=== PATIENT | male | born 1960 | race Caucasian/White ===

== ENCOUNTER → 2023-03-01 | Outpatient (CLI) | payer SELFPAY ==
--- NOTE | 2023-03-01 | HIP_PTH ---
PATIENT: SANTOS GARDINER LOC: [facility] U#:[id number] AGE/SX: 62/M ROOM: RE03/01/[address]: Dr. Esteban Carrillo MD : 1960 BED: DIS: 03/01/2023 SPEC #: [id number] RECD: 03/01/23 15:21 STATUS: ARIELLA REQ #: [id number] THIAGO: 03/01/23 00:[address]: Esteban Carrillo DEPT: SURGICAL PATHOLOGY RECD BY: Shruthi Sanders ENTERED: 03/04/23 07:53 SP TYPE: TOTAL HIP OTHR DR: PAULINA Tissues: Hip, NOS Procedures: Decalcification bone/plaque Surgery Specimen Level IV HEADER OPERATION: Right total hip arthroplasty PRE-OP DIAGNOSIS: Grade IV osteoarthritis right hip TISSUE SUBMITTED: Femur head, right hip MICROSCOPIC DIAGNOSIS Bone and tissue of right hip, total hip resection: Severe degenerative joint disease. AM:ranjith 03/07/2023 MICROSCOPIC DESCRIPTION Slides are reviewed. GROSS DESCRIPTION Received is one container labeled with the patient's name and designated bone and tissue right hip. The specimen consists of a hull femoral head that measures 6.0 x 5.0 x 5.0 cm. The articular surface displays prominent osteophyte formation, eburnation and bone erosion. Also present in the specimen container are multiple irregular fragments of bone reamings and pink-yellow soft tissue measuring in aggregate 8.5 x 8.0 x 1.0 cm. [employer] sections are submitted in two cassettes as follows: 1 - soft tissue and bone reamings, 2 - bone after decalcification. / AM:ranjith 03/04/2023 TC:5 [facility]: [id number]
== END | disposition home or self-care (01) ==
PROVIDERS: Visit Provider Orthopaedic Surgery
DX: M16.11 Unilateral primary osteoarthritis, right hip (principal)
CPT/HCPCS: 88305; 88311

== ENCOUNTER 2023-03-16 19:20 | Inpatient (IN) | payer SELFPAY, OTHER ==
[2023-03-16 18:45] VITALS: BMI 31.6
[2023-03-16 19:07] VITALS: BP 158/99; PULSE 66; RESP 16; TEMP 36.6; O2SAT 100
--- NOTE | 2023-03-16 19:24 | HP.PCM.HOS_ITS ---
HPI - General General Date of Admission: 03/16/23 Date of Service: 03/16/23 Chief Complaint: right hip dislocation HPI Narrative SANTOS GARDINER, is a 62 M who presents with a recurrent right hip dislocation. Patient had a right hip replacement on 01 March. As outpatient procedure and patient went home. That night, patient will had his foot on an ottoman and dislocated his hip. Was able to reduce it on his own. That has been recurrent numerous times since then. Today, patient had a very severe dislocation and went to an outside emergency room and had conscious sedation and had 2 other dislocations after it was initially reduced. Orthopedics was contacted. Dr. Carrillo did the procedure and they spoke with Dr. David Martin. Given the recurrent nature and the fact the patient is unable to go home with the easy dislocation patient brought into the hospital. The plan is for Dr. Dowling to do a revision on the right hip on the . Patient denies any traumatic incidents that led to any of these dislocations. [facility] Medical History Atrial fibrillation Hypertension Home Medications aspirin 81 mg tablet 81 mg PO BID 03/16/23 [History Last Taken 03/15/23] escitalopram oxalate 10 mg tablet 10 mg PO DAILY 03/16/23 [History Last Taken 03/15/23] losartan 100 mg-hydrochlorothiazide 12.5 mg tablet 1 tab PO DAILY 03/16/23 [History Last Taken 03/15/23] Allergy/AdvReac Type Severity Reaction Status Date / Time ketamine AdvReac Other Verified 03/16/23 18:47 Family History (Updated 03/16/23 @ 19:[address] Kalpesh Olea DO) Father Heart disease Surgical History History of appendectomy Social History (Updated 03/16/23 @ 19:[address] Kalpesh Olea DO) Smoking Status: Former smoker alcohol intake: former ROS ROS Narrative All review of systems were negative except as mentioned above in the history of present illness and the other review of systems. Vital Signs Vital Signs Vital Signs: 03/16/23 19:03 03/16/23 19:07 Temperature 36.6 C Temperature Source Oral Pulse Rate 66 Respiratory Rate 16 Respiratory Effort Normal Respiratory Depth Normal Respiratory Pattern Normal Blood Pressure 158/99 H Blood Pressure Mean 118 Blood Pressure Source Monitor Blood Pressure Position Semi-Fowlers Blood Pressure Location Right Arm Pulse Ox 100 Oxygen Delivery Method Room Air Room Air Weight Weight: 108.862 kg Body Mass Index (BMI) 31.6 Physical Exam Narrative - Physical Exam General: Alert, Oriented x3, Cooperative HEENT: Atraumatic, PERRLA, EOMI, Normocephalic Oral: Moist Mucosa, No Gingival or Mucosal Lesions/ Ulcerations Neck: Supple, No JVD, Negative Carotid Bruits Lungs: Clear to auscultation, Normal air movement Cardiovascular: Regular rate, Normal S1, Normal S2, No murmurs Abdomen: Bowel Sounds Present, Soft, Non Tender, Non-Distended, No Hepato- splenomegaly Extremities: No clubbing, No cyanosis, No edema, Capillary Refill Less than 3 Seconds Skin: No rashes, No breakdown right hip incision is clean intact with no evidence of any dehiscence. Musculoskeletal: No Tenderness to Palpation of Joints or Extremities Neurological: Neuro grossly intact Psych/Mental Status: Normal Affect, Appropriate Results Lab / Micro Data Attestation: I reviewed the patient's lab results. Lab results narrative: Outside labs: BMP sodium 137, potassium 4.1, creatinine 0.86, glucose 121, calcium 8.7, CBC: White count 8.2, hemoglobin 11.2, platelets 360 Right hip x-ray showed arthroplasty in place. Unclear if this was done before after reduction assuming after. Assessment & Plan Assessment/Plan (1) Hip dislocation, right: PLAN: Status post right hip replacement. Patient did not have this issue until he had his hip replaced on March 01. It is happened numerous times including 3 times today. Little movements can cause it to dislocate. I discussed the case with Dr. David Martin, who advised bedrest but with bathroom privileges. Patient will need assistance going to the bathroom. Plan is for her to have a revision on the . Patient remain in the hospital until then. Will consult orthopedics Pain control as needed. PLAN: Plan Chronic conditions * Hypertension: Continue with losartan/HCTZ. * A-fib: Takes aspirin. Will hold aspirin for now in light of the upcoming surgery. VTE prophylaxis with low molecular weight heparin. Given lack of any acuity and any active medical issues, patient be made observation status at this time. Charges/Coding Visit Charges Inpatient E&M: 10901 Init Hosp L2
[2023-03-16] MEDS: Acetaminophen 325 MG Tablet 650 MG PO (22:26)
[2023-03-16 22:35] VITALS: BP 139/88; PULSE 87; RESP 16; TEMP 37; O2SAT 97
[2023-03-17 02:15] VITALS: BP 125/62; PULSE 75; RESP 16; TEMP 36.6; O2SAT 97
--- NOTE | 2023-03-17 06:00 | EKG12_ITS ---
Test Reason : AM EKG Blood Pressure : / mmHG Vent. Rate : 072 BPM Atrial Rate : 072 BPM P-R Int : 160 ms QRS Dur : 112 ms QT Int : 414 ms P-R-T Axes : 040 -31 005 degrees QTc Int : 453 ms Normal sinus rhythm Left axis deviation Abnormal ECG No previous ECGs available Confirmed by RAFI GONZALEZ, ANNEL ([id number]), photographic editor CHERELLE RAE ([id number]) on 03/19/2023 1:29:07 PM Referred By: DAJA Confirmed By:RUEL MCKEE MD
--- NOTE | 2023-03-17 07:04 | PCM.PN.HOSP ---
Reason for Visit Reason for Visit: Diagnoses Unspecified dislocation of right hip, initial encounter (03/16/23) Objective Data Objective Data Vital Signs: Vital Signs Temp Pulse Resp BP Pulse Ox O2 Del Method 97.8 F 75 16 125/62 H 97 Room Air 03/17/23 02:15 03/17/23 02:15 03/17/23 02:15 03/17/23 02:15 03/17/23 02:15 03/17/23 02:15 Oxygen Delivery Method Room Air Weight: 240 lb Body Mass Index (BMI) 31.6 Lab / Micro Data Result Diagrams: 03/17/23 05:55 03/17/23 05:55 Physical Exam Narrative Seen and examined. Patient admitted from [place] ED for recurrent dislocation of right hip. Plan for elective revision of right total hip replacement. Patient does not have chest pain or shortness of breath. Denies any chronic cardiac disease or pulmonary disease.Patient is ex-smoker quit long time ago. Physical exam General: Alert, Oriented x3, Cooperative HEENT: Atraumatic, PERRLA, EOMI, Normocephalic Oral: Oral mucosa moist. No Gingival or Mucosal Lesions/ Ulcerations Neck: Supple, No JVD, Negative Carotid Bruits Lungs: Air entry diminished in bilateral lung bases. No crepitation/rhonchi Cardiovascular: Regular rate, Regular Rhythm, Normal S1, Normal S2, No murmurs Abdomen: Bowel Sounds Present, Soft, Non Tender, Non-Distended : No renal angle tenderness. No suprapubic tenderness. Extremities: No edema, Capillary Refill Less than 3 Seconds Skin: Right hip surgical dressing is healed except 1 or 2 stitches were open. As per patient it was not purulent but mild bleeding. Currently it is dry, no redness cellulitis, tenderness or drainage. Musculoskeletal: No Tenderness to Palpation of Joints or Extremities. Recurrent dislocation of right hip prosthetic ball. Right hip ROM not attempted because of recurrent dislocation. Neurological: Cranial nerves II-XII grossly intact, DTR 2+/4 and Symmetrical, Neuro grossly intact Psych/Mental Status: Normal Affect, Appropriate. Assessment & Plan Assessment/Plan (1) Hip dislocation, right: PLAN: 62-year-old gentleman admitted for recurrent 3 times hip dislocation after right hip replacement on March 01, 2023 as an outpatient procedure. Patient had very severe dislocation and went to [facility] and was reduced under conscious sedation. Because of the recurrent nature of dislocation and instability, patient is admitted for revision of right hip surgery on 03/19/[address] Dowling. Admitting hospitalist discussed with Dr. Restrepo, who advised bedrest but with bathroom privileges. Patient will need assistance going to the bathroom. Plan is for her to have a revision on the by Dr. Dowling. Patient remain in the hospital until then. Pain control as needed. Labs reviewed, hemoglobin on baseline. Platelet count normal. Magnesium 2.2. Electrolytes, BUN and creatinine in normal range. Glucose 92. Laboratory Results 03/17/23 05:55: WBC 7.9, RBC 3.96 L, Hgb 11.5 L, Hct 35.9 L, MCV 90.7, MCH 29.0, MCHC 32.0, RDW Std Deviation 44.2 H, RDW Coeff of Donald 13.3, Plt Count 374, MPV 9.6 03/17/23 05:55: Sodium 140, Potassium 4.3, Chloride 105, Carbon Dioxide 26.0, Anion Gap 9, BUN 16, Creatinine 0.82, Estim Creat Clear Calc 105.56, Est GFR (MDRD) Af Amer 122, Est GFR (MDRD) Non-Af 101, BUN/Creatinine Ratio 19.5, Glucose 98, Calcium 9.2 03/17/23 05:55: Blood Type O POSITIVE, Antibody Screen NEGATIVE 03/17/23 05:55: Magnesium 2.2 PLAN: Plan Chronic conditions Hypertension: Continue with losartan/HCTZ. A-fib: Takes aspirin. Will hold aspirin for now in light of the upcoming surgery and patient on ibuprofen as needed and Lovenox Patient currently on Lovenox 40 mill subcu daily, hold 1 day before proposed surgery. VTE prophylaxis: On enoxaparin 40 mill subcu daily. Charges/Coding Visit Charges Inpatient E&M: 07094 Subs Hosp L2
[2023-03-17 07:16] LABS: Hematocrit 35.9 % (40-54); Hemoglobin 11.5 g/dL (13.0-16.5); Mean Corpuscular Volume 90.7 fL (80-94); Mean Platelet Vol. 9.6 fl (6.2-12.0); Platelet Count 374 K/mm3 (150-450); RBC Distribution Width CV 13.3 % (11.6-14.6); RBC Distribution Width SD 44.2 fl (35.1-43.9); Red Blood Count 3.96 M/mm3 (4.6-6.2); White Blood Count 7.9 K/mm3 (4.4-11.0)
[2023-03-17 08:17] LABS: Magnesium 2.2 mg/dL (1.6-2.6)
[2023-03-17 08:30] VITALS: BP 128/65; PULSE 87; RESP 18; TEMP 36.6; O2SAT 98
[2023-03-17 08:45] VITALS: PULSE 87; RESP 18; O2SAT 98
[2023-03-17 10:29] LABS: Anion Gap 9 (5-15); BUN 16 mg/dL (7-18); BUN/Creat Ratio 19.5 RATIO (10-20); Calcium,Total 9.2 mg/dL (8.5-10.1); Chloride 105 mmol/L (98-107); Creatinine, Serum 0.82 mg/dL (0.70-1.30); EST Glomerular Filtration Rate 101 mL/min (>60); Est Glom Filt Rate - Afr Amer 122 mL/min (>60); Estimated Creatinine Clearance 105.56 ml/min; Glucose 98 mg/dL (74-106); Potassium 4.3 mmol/L (3.5-5.1); Sodium Level 140 mmol/L (136-145)
[2023-03-17] MEDS: Losartan Potassium 100 MG Tablet PO (11:40)
[2023-03-17] MEDS: hydroCHLOROthiazide 12.5mg 12.5 MG PO (11:40)
[2023-03-17] MEDS: Escitalopram Oxalate 10 MG Tablet PO (11:40)
[2023-03-17 14:30] VITALS: BP 135/80; PULSE 73; RESP 18; TEMP 36.6; O2SAT 96
[2023-03-17 14:45] VITALS: PULSE 73; RESP 18; O2SAT 96
[2023-03-17] MEDS: Enoxaparin 40 MG/0.4 ML Syringe SC (15:14)
--- NOTE | 2023-03-17 18:54 | CON.PCM_ITS ---
Assessment & Plan Assessment/Plan (1) Hip dislocation, right: PLAN: His diagnosis and treatment options regarding his right hip instability after previous replacement discussed with him and his family at length. I explained based on his intraoperative findings, postoperative x-rays, I do not have a good explanation for his current difficulties. He will be very careful with positioning to try to avoid recurrent dislocation. He would much like to proceed with surgery due to multiple dislocations that have been very uncomfortable. No guarantees were stated or implied. He will do ankle and foot exercises. I will recommend an incentive spirometer. I will recommend bilateral knee-high SANA hose and SCDs. Patient will be seen and evaluated and treated by Dr. Dowling most likely with hip revision surgery this week. Potentially Saturday. Continue on medical service for evaluation and treatment as needed. HPI Consult Data Date of Consult: 03/17/23 HPI Narrative Reason for Consultation: Hip instability HPI Narrative: SANTOS GARDINER, is a 62 M who presents with multiple right hip dislocations. He had right total hip replacement March 01, 2023. He first dislocated his hip just a few days later. This was seen and treated at [facility]. He also had feeling of subluxation even the day after surgery. He then sustained another hip dislocation March 16, 2023. This was seen and treated at another emergency room. Reportedly he had multiple dislocations while in the emergency room. He was therefore transferred to [facility] for further evaluation and treatment. Dr. Dowling has seen the patient as recent as March 15. Nonoperative treatment was hoped to be successful. However due to recurrent instability surgery most likely is warranted, patient denies numbness or tingling of the leg. Denies leg length discrepancy. Denies fever or chills. No chest pain or shortness of breath. [facility] Medical History Atrial fibrillation Hypertension Home Medications aspirin 81 mg tablet 81 mg PO BID 03/16/23 [History Last Taken 03/15/23] escitalopram oxalate 10 mg tablet 10 mg PO DAILY 03/16/23 [History Last Taken 03/15/23] losartan 100 mg-hydrochlorothiazide 12.5 mg tablet 1 tab PO DAILY 03/16/23 [History Last Taken 03/15/23] Allergy/AdvReac Type Severity Reaction Status Date / Time ketamine AdvReac Other Verified 03/16/23 18:47 Family History (Updated 03/16/23 @ 19:[address] Kalpesh Olea DO) Father Heart disease Surgical History History of appendectomy no surgical history (Right total hip replacement March 01, 2023. Previous hernia surgery. Previous right and left shoulder surgery.) Social History (Updated 03/16/23 @ 19:[address] Kalpesh Olea DO) Smoking Status: Former smoker alcohol intake: former ROS ROS Narrative Denies problems with eyes ears nose or throat heart or lungs bowel or bladder. He does have right hip pain when the hip is dislocated. He is being very careful with positioning, bathroom privileges Physical Exam Narrative Patient is laying in bed comfortably. Multiple family members are present. He does have a pillow between his knees. Clinically leg lengths are equal. Good plantarflexion dorsiflexion toes and ankles. No calf pain or swelling. Negative Homans' sign. Legs are neurovascular intact. Hip was not stressed. Right hip keven have been removed. Steri-Strips are in place. Mild redness about the incision. No drainage. Lab / Micro Data Result Diagrams: 03/17/23 05:55 03/17/23 05:55 Labs: Laboratory Results - last 24 hr 03/17/23 05:55: WBC 7.9, RBC 3.96 L, Hgb 11.5 L, Hct 35.9 L, MCV 90.7, MCH 29.0, MCHC 32.0, RDW Std Deviation 44.2 H, RDW Coeff of Donald 13.3, Plt Count 374, MPV 9.6 03/17/23 05:55: Sodium 140, Potassium 4.3, Chloride 105, Carbon Dioxide 26.0, Anion Gap 9, BUN 16, Creatinine 0.82, Estim Creat Clear Calc 105.56, Est GFR (MDRD) Af Amer 122, Est GFR (MDRD) Non-Af 101, BUN/Creatinine Ratio 19.5, Glucose 98, Calcium 9.2 03/17/23 05:55: Blood Type O POSITIVE, Antibody Screen NEGATIVE 03/17/23 05:55: Magnesium 2.2
[2023-03-17 20:24] VITALS: BP 145/89; PULSE 76; RESP 16; TEMP 36.5; O2SAT 99
[2023-03-18 02:00] VITALS: BP 137/98; PULSE 72; RESP 16; TEMP 36.6; O2SAT 97
[2023-03-18 08:08] VITALS: BP 138/98; PULSE 79; RESP 18; TEMP 36.9; O2SAT 98
[2023-03-18] MEDS: Escitalopram Oxalate 10 MG Tablet PO (10:05)
[2023-03-18] MEDS: Enoxaparin 40 MG/0.4 ML Syringe SC (10:05)
[2023-03-18] MEDS: hydroCHLOROthiazide 12.5mg 12.5 MG PO (10:05)
[2023-03-18] MEDS: Losartan Potassium 100 MG Tablet PO (10:05)
--- NOTE | 2023-03-18 12:16 | PN.ORTHO_ITS ---
Subjective Subjective 62-year-old male status post right total hip replacement 3 weeks ago presents with multiple dislocations already postoperatively. He is inherently unstable with a difficult time reducing his hip. I was able to review my partner's consultation. They would like me to assume the patient's care due to the complexity of the case. I have agreed to take care of the patient. I did evaluate him in the office last week and we talked about nonoperative interventions and were attempting to try this. However he redislocated again. Considering the ease of dislocation as well as how often it is occurred since his short duration of postoperative care I recommended we proceed with surgical intervention at this time. Objective Data Objective Data Vital Signs: Vital Signs Temp Pulse Resp BP Pulse Ox O2 Del Method 98.5 F 79 18 138/98 H 98 Room Air 03/18/23 08:08 03/18/23 08:08 03/18/23 08:08 03/18/23 08:08 03/18/23 08:08 03/18/23 08:08 Oxygen Delivery Method Room Air Weight: 240 lb Body Mass Index (BMI) 31.6 Intake & Output: Intake and Output for Last 24 Hours 03/16/23 03/17/23 03/18/23 23:59 23:59 23:59 Intake Total 600 / 600 850 / 850 Balance 600 / 600 850 / 850 Lab / Micro Data Attestation: I reviewed the patient's lab results. Result Diagrams: 03/17/23 05:55 03/17/23 05:55 Physical Exam Const alert, oriented x3 and no apparent distress Extremity Extremity Narrative: Right lower extremity: Previous incision is clean dry and intact. Range of motion and strength exam deferred secondary to pain and instability. Patient do es have dorsiflexion EHL and plantarflexion. Sensations intact light touch saphenous, sural, superficial peroneal, deep peroneal and tibial nerve distributions. 2+ DP pulses. Assessment & Plan Assessment/Plan (1) Hip dislocation, right: PLAN: Patient has multiple dislocations after right total replacement done 3 weeks ago. At this point I recommended surgical intervention due to the inherent stability of this hip. His most recent dislocation occurred with a hip moderately flexed with axial pressure on the hip. He had multiple trips to the emergency department and multiple bouts of sedation. He has others feelings of instability. Risk benefits of the procedure were discussed with patient including but not limited to blood loss, DVTs, PEs, nervous damage, infection, the risk of anesthesia include loss of life. We also discussed further dislocations and leg length discrepancies. Explained to the patient that based on his history I would err on the side of the leg length discrepancy if it gave him a stable hip. Patient demonstrates understanding and does wish to proceed. We will need to discontinue his Lovenox at midnight tonight. Agree with proceeding with DVT prophylaxis at this time however. Antibiotics will be ordered on-call to the operating room. Patient is under the care of medicine at this time.
--- NOTE | 2023-03-18 12:28 | CASEMGMT ---
Social Work SW met w/pt and in room. Pt is listed as self pay. explained that they pay into two different [employer] funds. SW copied the cards and faxed it to the financial department. SW spoke w/pt and briefly about plan. Pt is having surgery tomorrow. He had initial surgery Saturday, and hip dislocated. At that time, after the first surgery, pt went home and plan was for outpt PT. Pt is hopeful to continue with this plan once medically stable and able to leave the hospital. SW and CM available for any additional homegoing needs. GEORGE Bear
[2023-03-18 15:13] VITALS: O2SAT 98
[2023-03-18 15:57] VITALS: BP 114/73; PULSE 86; RESP 18; TEMP 36.8; O2SAT 98
--- NOTE | 2023-03-18 16:57 | PCM.PN.HOSP ---
Reason for Visit Reason for Visit: Diagnoses Unspecified dislocation of right hip, initial encounter (03/16/23) Subjective Subjective Patient was seen and examined today, he has no complaints of any chest discomfort or shortness of breath, he is scheduled for hip revision surgery tomorrow. Objective Data Objective Data Vital Signs: Vital Signs Temp Pulse Resp BP Pulse Ox O2 Del Method 98.3 F 86 18 114/73 98 Room Air 03/18/23 15:57 03/18/23 15:57 03/18/23 15:57 03/18/23 15:57 03/18/23 15:57 03/18/23 15:57 Oxygen Delivery Method Room Air Weight: 108.862 kg Body Mass Index (BMI) 31.6 Intake & Output: Intake and Output for Last 24 Hours 03/16/23 03/17/23 03/18/23 23:59 23:59 23:59 Intake Total 600 / 600 850 / 850 Balance 600 / 600 850 / 850 Lab / Micro Data Result Diagrams: 03/17/23 05:55 03/17/23 05:55 Physical Exam Const alert, oriented x3, no apparent distress, average body habitus and healthy appearing General Appearance: cooperative, well kempt and well developed Orientation / Consciousness: awake, oriented to person, oriented to place and oriented to time HEENT normocephalic, head/scalp atraumatic and moist oral mucous membranes Eyes PERRL, EOMs intact bilaterally and conjunctivae normal Neck supple, no JVD, thyroid normal and no carotid bruits General: trachea midline Resp normal respiratory effort, no retractions, no use of accessory muscles and clear to auscultation bilaterally Auscultation: Negative for rales, rhonchi or wheezes Cardio regular rate, regular rhythm, S1 normal heart sound, S2 normal heart sound, no murmurs, no rub and no gallops GI normal to inspection, nondistended, normoactive bowel sounds, soft to palpation, non-tender and non-distended Extremity no clubbing, cyanosis or edema Skin no rashes or lesions noted General Skin Exam: no breakdown Neuro oriented x3, CN's II-XII intact bilaterally, moves all extremities, no focal motor deficits and no sensory deficits noted Sensorium / Orientation: awake, alert, oriented to person, oriented to place and oriented to time Speech: speech normal Psych affect normal Assessment & Plan Assessment/Plan (1) Hip dislocation, right: PLAN: Plan 1. Chronic right hip dislocation-patient appears stable for surgery tomorrow #2 essential hypertension-patient is to remain on his present medication I talked at length with the patient, he has no documented history of atrial fibrillation, he takes a baby aspirin because he thinks is healthy to do so, I discouraged him from doing that. Total clinical time spent by myself addressing patient's medical issues, reviewing all of his data, and collaborating with the patient's care team: 25 minutes Charges/Coding Visit Charges Inpatient E&M: 50438 Subs Hosp L1
[2023-03-18 22:20] VITALS: BP 114/64; PULSE 67; RESP 16; TEMP 36.8; O2SAT 98
[2023-03-19] VITALS (11 sets, daily range): BP systolic 103–139; BP diastolic 58–93; PULSE 70–116; RESP 16–18; TEMP 36.4–37.5; O2SAT 97–100; BMI 31.6
--- NOTE | 2023-03-19 | HIP_PTH ---
PATIENT: SANTOS GARDINER LOC: [facility] U#:[id number] AGE/SX: 62/M [place] [facility] [place]: Dr. Daniel Harrington DO : 1960 BED: 1 DIS: 03/20/2023 SPEC #: [id number] RECD: 03/19/23 15:59 STATUS: ARIELLA JUNIOR #: [id number] THIAGO: 03/19/23 00:[address]: Chi Dowling DEPT: SURGICAL PATHOLOGY RECD BY: Mir Herman ENTERED: 03/20/23 10:10 SP TYPE: TOTAL HIP OTHR DR: DO Dr. Daniel Deluna DO Dr. Prakash Chand, MD No Primary Care Phys Tissues: Hip, NOS Procedures: Decalcification bone/plaque Surgery Specimen Level IV HEADER OPERATION: Total hip replacement revision, posterior PRE-OP DIAGNOSIS: Right hip dislocation TISSUE SUBMITTED: Right hip bone and tissue MICROSCOPIC DIAGNOSIS Total hip replacement/revision, reamings: Bone and bone marrow elements with reparative and reactive change. Trilineage hematopoiesis. AM:ranjith 03/22/2023 MICROSCOPIC DESCRIPTION Slides are reviewed. GROSS DESCRIPTION Received is one container labeled with the patient's name and designated right hip bone and tissue. The specimen consists of multiple fragments of hemorrhagic tissue may represent bone reamings measuring in aggregate 6.5 x 6.0 x 2.0 cm. [employer] tissue is submitted in two cassettes after decalcification. / DAVID:ranjith 03/20/2023 TC:5 CPT: 31441, 72547
[2023-03-19] MEDS: Losartan Potassium 100 MG Tablet PO (07:45)
[2023-03-19] MEDS: Escitalopram Oxalate 10 MG Tablet PO (07:46)
[2023-03-19] MEDS: hydroCHLOROthiazide 12.5mg 12.5 MG PO (07:46)
[2023-03-19] MEDS: Lactated Ringers 1,000 ML 125 ML IV (07:54)
[2023-03-19] MEDS: 0.9% Saline Lock 10 ML Syringe IV (07:54)
[2023-03-19] MEDS: Gabapentin 600 MG Tablet PO (12:18)
[2023-03-19] MEDS: Acetaminophen 500 MG Tablet 1000 MG PO ×2 (12:18→21:53)
--- NOTE | 2023-03-19 12:42 | PCM.PN.ORT ---
Subjective Subjective Patient reexamined today. Exam stable. We will proceed with surgery. Objective Data Objective Data Vital Signs: Vital Signs Temp Pulse Resp BP Pulse Ox O2 Del Method 98.2 F 84 16 139/82 H 99 Room Air 03/19/23 11:27 03/19/23 11:27 03/19/23 11:27 03/19/23 11:27 03/19/23 11:27 03/19/23 11:27 Oxygen Delivery Method Room Air Weight: 240 lb Body Mass Index (BMI) 31.6 Intake & Output: Intake and Output for Last 24 Hours 03/17/23 03/18/23 03/19/23 23:59 23:59 23:59 Intake Total 600 / 600 1700 / 1700 Balance 600 / 600 1700 / 1700 Lab / Micro Data Result Diagrams: 03/17/23 05:55 03/17/23 05:55 Assessment & Plan Assessment/Plan (1) Hip dislocation, right: PLAN: Patient was seen and evaluated in the preoperative area. Right hip was marked. Patient is agreeable to treatment plan he was given opportunity ask further questions or concerns. His is at bedside and agreed to proceed with surgery as well. Exam is stable from yesterday.
--- NOTE | 2023-03-19 12:48 | NURSING ---
pt to surgery
[2023-03-19] MEDS: Cefazolin 2 GM in 0.9% Normal Saline 100 ML IV (13:14)
[2023-03-19] MEDS: TXA 1000mg in NS100 100ml (IVPB at Closure) 660 MG IV (13:34)
[2023-03-19] MEDS: dexAMETHasone 10 MG/ML Vial IV (13:56)
[2023-03-19] MEDS: TXA 1000mg in NS100 100ml (IVPB at Incision) 660 MG IV (14:40)
[2023-03-19] MEDS: JPS (Morphine 10mg/ml) OPERA.SITE (14:52)
--- NOTE | 2023-03-19 14:55 | PCM.OPRPT ---
Report of Operation Date of Procedure: 03/19/23 Pre-Operative Diagnosis: Instability right total replacement Post-Operative Diagnosis: Instability right total hip replacement Surgery/Procedure Performed:: Revision acetabular and femoral component right total hip Description of Surgical Findings:: Patient was grossly unstable on examination. After revision patient's stability was good to flexion of greater than 90 degrees and internal rotation greater than 45 Surgeon: Chi Dowling tree tapping laborer: Ryder Talley Type of Anesthesia: General Anesthesiologist: Kalpesh Castaneda Special Medications: 2 g Ancef, 1 g TXA at incision, 1 g TXA closure, 10 mg Decadron, joint cocktail (5 mg Duramorph, 30 mL of 0.5% Ropivicaine, 1000 units of epinephrine, 30 mg of Toradol) vancomycin preoperatively was also given Specimen's removed: None Estimated Blood Loss (mL): 600 Fluids Replaced: 2000 mL crystalloid Description of Procedure: On the date of the procedure patient was seen and evaluated in the preoperative area. Patient was then taken back to the operating room after the right hip was marked. Patient was placed in the supine position after being transferred to the surgical table. Anesthesia assumed control the C-spine and airway and remained controlled throughout the remainder of the procedure. After the patient was appropriate anesthetized were placed in lateral cubitus position. Axillary roll was placed all bony prominences were identified well-padded. Right lower extremity was then prepped in a sterile fashion while the surgeon scrubbed. Upon reentering the room right lower extremity was draped in a standard orthopedic fashion. Timeout was called everyone agreed upon the side, the site, procedure performed, patient's identity and antibiotics given. Incision was marked out using previous incision and extending it proximally and distally in line with the previous incision. After the timeout was called and patient was appropriately draped we then made our incision to the previous incision again extending it proximally distally. We carefully dissected down to the fascia removing previous sutures and maintaining hemostasis throughout the procedure. Once we were able to get to the fascia we are with identify the previous fasciotomy based on sutures in place. The sutures were cut and the fasciotomy was again entered. The previous posterior repair was no longer stable and tissues were retracted. Leaving is nothing to repair on the way out. We carefully performed a synovectomy and bursectomy. We were then able to get down to the joint. We able to examine the joint patient was able to flex to 90 degrees however with any internal rotation he dislocated. We then dislocated the hip and used a bone tamp to remove the femoral head. Trunnion remained okay and the femur was retracted out of place. Patient did not have a dual mobility femoral head. Once the femur was retracted out of the way attention was directed towards the acetabulum. We carefully debrided tissue around the acetabulum and were able to identify the cup. The cup was removed using an osteotome. Screw was removed. The head charger was placed into the previous cup and it was able to be easily removed using leverage as there was minimal ingrowth. At this time we carefully reamed the 56 mm previously reamed acetabulum to 58 mm obtaining good bleeding bone. Once this was completed we carefully irrigated out the wound with 6 L of normal saline. 58 mm cup was opened, acetabular cup was again exposed and acetabulum was impacted into place. We did use the [facility] acetabular guide. Based on this we had 45 degrees of abduction and 25 degrees of anteversion. MDM liner was then seated. The cup was stably fixed so we elected not to place any screws based on the acuity of the previous surgery and health of the patient's bone as well as acetabular fixation intraoperatively. Once the MDM liner was placed we then used a dual mobility head which was different than the previous femoral head to improve stability. A +5 mm trial was selected hip was reduced the hip was able to be flexed to 90 degrees and internally rotated to 45 degrees and remained stable. Combined anteversion was 45 degrees. Based on this the trials were dislocated. Trial head was removed. Final head was open. C taper sleeve was placed over the previous trunnion and a Biolox delta head was used. Once the dual mobility head was assembled on the back table we carefully placed over the C taper sleeve and impacted into place. Marquez taper was verified and well fixed. Hip was then reduced.. Hip remained stable. There were no posterior structures to repair. 6 L of normal saline were irrigated throughout the wound for 3 minutes followed by a 1 minute chlorhexidine lavage. Finally we copiously irrigate out the wound with normal saline. The fascia was closed with the leg in an abducted position using #1 Vicryl and oversewn with #1 strata fix. Final skin closure was done with nylon sutures. Silver Mepilex dressing was placed. Patient was awakened anesthesia and placed in supine position. He was then transferred to the table in [facility] and transferred the PACU for recovery in stable condition. Implants: 1. [place] Trident 2 acetabular shell 58 mm 2. [place] C taper conversion sleeve 3. [place] MDM cobalt-chromium liner alpha code F 4. [place] Biolox delta 28 mm, +5 mm femoral head 4. [place] X3 MDM femoral liner 46 F During the course of the procedure the physician top loader (PE) played a vital role. Their intimate knowledge of my steps in the procedure aided in safe and expedient completion of the procedure. The PE played a vital rolls in positioning particularly in obtaining the appropriate lateral decubitus position. The PE was also vital in the retraction of soft tissues during the exposure and especially the femoral work as this is a vital part of the procedure to prevent complications and fractures. The PE was also vital and protecting soft tissues during times of bony cuts and reaming. He also played a vital role in closure with my direct supervision. The PE was also important during reduction and dislocation of the joint and trials intraoperatively. Postop plan: DVT prophylaxis: Aspirin 81 mg p.o. twice daily for 4 weeks starting tomorrow. SCDs in house, early mobilization Antibiotics: 2 weeks of postoperative oral antibiotics doxycycline 100 mg p.o. twice daily due to high risk nature of 2 close surgeries. Dressing: If dressing remains clean dry and intact remove 5 days postoperatively Follow-up: Patient should be seen in the office in 2 weeks. Therapy: Weightbearing as tolerated, activity as tolerated. Strict posterior hip precautions no flexion beyond 90 degrees.
--- NOTE | 2023-03-19 15:45 | RAD_ITS ---
EXAM: XR RIGHT HIP WITH PELVIS WHEN PERFORMED, 2 OR 3 VIEWS CLINICAL INDICATION: None provided. Post Op -- AP both hips on single carol/lateral of op hip PACU TECHNIQUE: Two or three views of the right hip with pelvis when performed. COMPARISON: No relevant prior studies available. FINDINGS: BONES/JOINTS: The total right hip prosthesis in anatomic alignment. No displaced fracture. No destructive or sclerotic lesions. Note that overlapping bowel shadows may however obscure fine detail. Sacroiliac joint is unremarkable. No widening of the pubic symphysis. SOFT TISSUES: Unremarkable. No soft tissue swelling or gas. RAD/Hip Min 2 Views (Portable) IMPRESSION: Right hip prosthesis in anatomic alignment. There are no osseous abnormalities. Electronically Signed: Jame Espinal MD at 16:56 EDT ,
--- NOTE | 2023-03-19 15:52 | PCM.PN.HOSP ---
Reason for Visit Reason for Visit: Diagnoses Unspecified dislocation of right hip, initial encounter (03/16/23) Subjective Subjective Patient was seen and examined today, he went for repair of his unstable right hip today. At my exam earlier today, he had no complaints of any shortness of breath, chest pain, fevers, or chills. Objective Data Objective Data Vital Signs: Vital Signs Temp Pulse Resp BP Pulse Ox O2 Del Method 99.5 F H 116 H 16 118/92 H 99 Room Air 03/19/23 15:41 03/19/23 15:41 03/19/23 15:41 03/19/23 15:41 03/19/23 15:41 03/19/23 15:41 Oxygen Delivery Method Room Air Weight: 108.862 kg Body Mass Index (BMI) 31.6 Intake & Output: Intake and Output for Last 24 Hours 03/17/23 03/18/23 03/19/23 23:59 23:59 23:59 Intake Total 600 / 600 1700 / 1700 330 / 330 Balance 600 / 600 1700 / 1700 330 / 330 Lab / Micro Data Result Diagrams: 03/17/23 05:55 03/17/23 05:55 Physical Exam Narrative alert, oriented x3, no apparent distress, average body habitus and healthy appearing General Appearance: cooperative, well kempt and well developed Orientation / Consciousness: awake, oriented to person, oriented to place and oriented to time HEENT normocephalic, head/scalp atraumatic and moist oral mucous membranes Eyes PERRL, EOMs intact bilaterally and conjunctivae normal Neck supple, no JVD, thyroid normal and no carotid bruits General: trachea midline Resp normal respiratory effort, no retractions, no use of accessory muscles and clear to auscultation bilaterally Auscultation: Negative for rales, rhonchi or wheezes Cardio regular rate, regular rhythm, S1 normal heart sound, S2 normal heart sound, no murmurs, no rub and no gallops GI normal to inspection, nondistended, normoactive bowel sounds, soft to palpation, non-tender and non-distended Extremity no clubbing, cyanosis or edema Skin no rashes or lesions noted General Skin Exam: no breakdown Neuro oriented x3, CN's II-XII intact bilaterally, moves all extremities, no focal motor deficits and no sensory deficits noted Sensorium / Orientation: awake, alert, oriented to person, oriented to place and oriented to time Speech: speech normal Psych affect normal Assessment & Plan Assessment/Plan (1) Hip dislocation, right: PLAN: Plan 1. Chronic right hip dislocation-patient underwent hip revision today #2 essential hypertension-patient is to remain on his present medication Total clinical time spent by myself addressing patient's medical issues, reviewing all of his data, and collaborating with the patient's care team: 25 minutes Charges/Coding Visit Charges Inpatient E&M: 25713 Subs Hosp L1
[2023-03-19] MEDS: Lactated Ringers 1,000 ML 999 ML IV (16:01)
[2023-03-19] MEDS: Cefazolin 1 GM/50 ML BAG IV (21:52)
[2023-03-19] MEDS: Aspirin 81 MG TAB.CHEW PO (21:53)
[2023-03-19] MEDS: Senna/Docusate Sodium 1 Tablet 2 TABLET PO (21:53)
[2023-03-20] MEDS: Acetaminophen 500 MG Tablet 1000 MG PO (04:40)
[2023-03-20] MEDS: Cefazolin 1 GM/50 ML BAG IV (04:41)
[2023-03-20 05:14] VITALS: BP 118/80; PULSE 65; RESP 16; TEMP 36.7; O2SAT 98
[2023-03-20 06:22] LABS: Hematocrit 31.4 % (40-54); Hemoglobin 10.4 g/dL (13.0-16.5); Mean Corp Hgb Conc 33.1 g/dL (32-36); Mean Corpuscular Hgb 29.7 pg (27.0-32.0); Mean Corpuscular Volume 89.7 fL (80-94); Mean Platelet Vol. 9.3 fl (6.2-12.0); Platelet Count 444 K/mm3 (150-450); RBC Distribution Width CV 13.5 % (11.6-14.6); RBC Distribution Width SD 44.2 fl (35.1-43.9); White Blood Count 13.9 K/mm3 (4.4-11.0)
[2023-03-20 06:54] LABS: Anion Gap 7 (5-15); BUN 20 mg/dL (7-18); BUN/Creat Ratio 21.5 RATIO (10-20); Calcium,Total 8.3 mg/dL (8.5-10.1); Chloride 104 mmol/L (98-107); Creatinine, Serum 0.93 mg/dL (0.70-1.30); EST Glomerular Filtration Rate 88 mL/min (>60); Est Glom Filt Rate - Afr Amer 106 mL/min (>60); Estimated Creatinine Clearance 93.07 ml/min; Glucose 126 mg/dL (74-106); Potassium 4.3 mmol/L (3.5-5.1); Sodium Level 136 mmol/L (136-145)
--- NOTE | 2023-03-20 08:22 | DCINST_ITS ---
Discharge Instructions Diet Discharge Diet: No restrictions Activity Discharge Activity: Return to Normal Activity Weight Bearing Status: Full weight bearing Dressing / Incision Call your doctor if your incision/area has: Continuous Slow Oozing, Increased Pain/ Swelling, Increased Redness and Foul Smelling Discharge Call your doctor if you observe: Fever of 101 or Higher Remove Dressing in: 5 days Follow Up Care Test Results: Test results from this visit will be discussed in further detail at your follow- up appointment, if applicable. Discharge Plan Admission Admit Date/Time: 03/18/23 12:16 Primary Reason for Your Visit: right hip dislocation Attending Provider: Daniel Harrington Primary Care Provider: Care Physician,No Primary Consulting Providers: Tano Restrepo ; Gianfranco Chang Instructions Additional Instructions / Restrictions: No flexion in the right hip greater than 90 degrees Remove your dressing in 5 days, clean your surgical area with soap and water Follow-up with Dr. Dowling's office in 2 weeks Discharge Orders/Prescriptions Prescriptions: New acetaminophen 500 mg Tablet 1,000 mg PO Q8 Qty: 0 0RF meloxicam 7.5 mg Tablet 7.5 mg PO BIDCM Qty: 60 0RF famotidine 20 mg Tablet 20 mg PO DAILY Qty: 30 0RF doxycycline monohydrate 100 mg tablet 100 mg PO BID Qty: 28 0RF Continued aspirin 81 mg Tablet 81 mg PO BID escitalopram oxalate 10 mg Tablet 10 mg PO DAILY losartan-hydrochlorothiazide 100-12.5 mg Tablet 1 tab PO DAILY Referrals / Follow Up: Chi Dowling MD [Med Staff - Active Staff] - See Referral Note (In 2 weeks) Care Physician,No Primary [Primary Care Provider] - Disposition Disposition (needs filled in before D/C Order can be placed): Home, Self Care
[2023-03-20] MEDS: Aspirin 81 MG TAB.CHEW PO (08:39)
[2023-03-20] MEDS: hydroCHLOROthiazide 12.5mg 12.5 MG PO (08:39)
[2023-03-20] MEDS: Losartan Potassium 100 MG Tablet PO (08:39)
[2023-03-20] MEDS: Senna/Docusate Sodium 1 Tablet 2 TABLET PO (08:39)
[2023-03-20] MEDS: Escitalopram Oxalate 10 MG Tablet PO (08:39)
[2023-03-20] MEDS: Famotidine 20 MG Tablet PO (08:40)
[2023-03-20] MEDS: Ensure Surgery 237 ML LIQUID PO (08:42)
[2023-03-20 09:23] VITALS: BP 130/73; PULSE 68; RESP 16; TEMP 36.3; O2SAT 100
--- NOTE | 2023-03-20 09:48 | PN.ORTHO_ITS ---
Subjective Subjective Patient sitting at bedside. Patient states his pain has been very well managed. He is ambulating around the unit twice today. He feels very stable with his walker. Patient's pain has been very well managed. Patient has no other complaints at this time. He denies chest pain, shortness of breath, calf pain, nausea vomiting. Patient is anxious to be discharged home today. He intends to doing postop physical therapy in [place]. Objective Data Objective Data Vital Signs: Vital Signs Temp Pulse Resp BP Pulse Ox O2 Del Method O2 Flow Rate 97.4 F L 68 16 130/73 H 100 Room Air 2 03/20/23 09:23 03/20/23 09:23 03/20/23 09:23 03/20/23 09:23 03/20/23 09:03/20/23 09:03/19/23 17:15 Oxygen Flow Rate (L/min) 2 Oxygen Delivery Method Room Air Weight: 108.862 kg Body Mass Index (BMI) 31.6 Intake & Output: Intake and Output for Last 24 Hours 03/18/23 03/19/23 03/20/23 23:59 23:59 23:59 Intake Total 1700 / 1700 3110 / 3110 50 / 50 Output Total 400 / 400 Balance 1700 / 1700 2710 / 2710 50 / 50 Lab / Micro Data Result Diagrams: 03/20/23 05:43 03/20/23 05:43 Labs: Laboratory Results - last 24 hr 03/20/23 05:43: WBC 13.9 H, RBC 3.50 L, Hgb 10.4 L, Hct 31.4 L, MCV 89.7, MCH 29.7, MCHC 33.1, RDW Std Deviation 44.2 H, RDW Coeff of Donald 13.5, Plt Count 444, MPV 9.3 03/20/23 05:43: Sodium 136, Potassium 4.3, Chloride 104, Carbon Dioxide 25.0, Anion Gap 7, BUN 20 H, Creatinine 0.93, Estim Creat Clear Calc 93.07, Est GFR (MDRD) Af Amer 106, Est GFR (MDRD) Non-Af 88, BUN/Creatinine Ratio 21.5 H, Glucose 126 H, Calcium 8.3 L Radiography Diagnostic Testing: Radiology Impression Hip X-Ray 03/19/23 15:45 IMPRESSION: Right hip prosthesis in anatomic alignment. There are no osseous abnormalities. Electronically Signed: Jame Espinal MD at 16:56 EDT , Physical Exam Narrative Exam I found patient sitting at bedside alert oriented. Patient no respiratory distress, speaking in full sentences. Patient has excellent range of motion with good muscle tone and strength of the upper extremities. The dressing over the right hip is clean dry intact. Patient has no tenderness to the quadriceps region. Good flexion-extension of the right knee ankle and foot. No calf tenderness. Neurovascular is otherwise intact. Const alert and oriented x3 General Appearance: cooperative HEENT normocephalic Eyes PERRL Resp normal respiratory effort Effort and Inspection: able to speak in complete sentences Cardio regular rate Extremity normal capillary refill Skin no rashes or lesions noted Neuro CN's II-XII intact bilaterally Motor Exam: strength 5/5 throughout and muscle tone normal throughout Psych mental status grossly normal and affect normal Assessment & Plan Assessment/Plan (1) Status post revision of total replacement of right knee: PLAN: 1. Continue all pain medications as prescribed 2. Aspirin 81 mg 1 p.o. every 12 hours x30 days for postop DVT prophylaxis 3. Postop antibiotic doxycycline 100 mg 1 p.o. every 12 hours x14 days 4. Encourage incentive spirometry 5. Ambulate with weightbearing as tolerated with walker 6. Patient can shower in 3 days 7. Can remove dressing in 10 days. 8. Follow-up at [facility] with Mario Alberto Butcher PA-C 2 weeks 9. Discharge home today 10. Patient will continue with outpatient physical therapy in [place]
--- NOTE | 2023-03-20 09:54 | DCINST_ITS ---
Discharge Instructions Diet Discharge Diet: No restrictions Activity Discharge Activity: Return to Normal Activity, May Not Drive, May Shower and Use Walker May shower in (days): 3 May resume sexual activity in: No Restrictions Ice area for (Minutes): 20 Weight Bearing Status: Weight bearing as tolerated Keep extremity elevated above heart level: Operative Extremity Additional Activity Instructions:: Strict posterior restrictions, no flexion beyond 90 degrees Dressing / Incision Call your doctor if your incision/area has: Continuous Slow Oozing, Sudden Increased Bleeding, Increased Pain/ Swelling, Increased Redness, Foul Smelling Discharge and Swelling at the incision site Call your doctor if you observe: Fever of 101 or Higher Change Dressing in: 5 days Remove Dressing in: 5 days Follow Up Care Please Follow Up With: Mario Alberto Butcher PA-C When: 2 weeks (as scheduled see pink sheet) Test Results: Test results from this visit will be discussed in further detail at your follow- up appointment, if applicable. Discharge Plan Admission Admit Date/Time: 03/18/23 12:16 Primary Reason for Your Visit: right hip dislocation Attending Provider: Daniel Harrington Primary Care Provider: Care Physician,Yelitza Primary Consulting Providers: Tano Restrepo ; Gianfranco Chang Discharge Orders/Prescriptions Prescriptions: New acetaminophen 500 mg Tablet 1,000 mg PO Q8 Qty: 0 0RF meloxicam 7.5 mg Tablet 7.5 mg PO BIDCM Qty: 60 0RF famotidine 20 mg Tablet 20 mg PO DAILY Qty: 30 0RF Continued aspirin 81 mg Tablet 81 mg PO BID escitalopram oxalate 10 mg Tablet 10 mg PO DAILY losartan-hydrochlorothiazide 100-12.5 mg Tablet 1 tab PO DAILY Referrals / Follow Up: Care Physician,No Primary [Primary Care Provider] -
[2023-03-20] MEDS: Doxycycline 100 MG CAPSULE PO (11:23)
--- NOTE | 2023-03-20 11:25 | CASEMGMT ---
OZIEL DANIELLE Assessment: Face to Face with pt for initial transition planning/care coordination assessment. RN LOLIS introduced self and role at [facility], pt voices understanding and consents to assessment. Pt is A/O x4 and answers all questions appropriately at this time. Pt standing at bedside with walker, dressed and ready for dc. Pt at bedside. Care providers, pharmacy, and demographics verified/updated. Admitting Dx: Rt hip dislocation PCP:Karuna Specialists:alexia Dowling Pharmacy: [facility] Prescription Benefit: no LNOK: Alma Hartmann, ; Sondra Hartmann, son Living Arrangements: Pt lives with and 3 sons in a two story home with 5 steps to enter with a rail. Pt reports he was I in ADL's prior to surgery. States his is able to assist him post surgery. Transportation: Pt hires drivers for transportation. DME/HHC/SNF: Pt has a high rise toilet, anode adjuster and FWW at home. Pt denies hx of HHC or SNF stays. Pt states no concerns with going home at time of dc. Provided pt with a rx for outpt therapy. He states he is going to a facility in [place]. He denies need for RN CM to set up appt. states she will do this when she gets home. Pt reports they are able to afford rx. Pt states no further concerns/needs. CM to follow. Advised pt to ask CM if any further question/concerns/needs arise, voices understanding. Pt Goal: Home, will set up outpt therapy Plan: Home, will set up outpt therapy
--- NOTE | 2023-03-20 11:41 | PHA.DC.MC ---
Pharmacy Service has performed discharge medication reconciliation and counseling for this patient. 1. ACETAMINOPHEN 1000MG PO Q8 2. DOXYCYCLINE 100MG PO BID X 14 DAYS 3. MELOXICAM 7.5MG PO BIDCM 4. FAMOTIDINE 20MG PO DAILY The patient's discharge medication list was reviewed for discrepancies and discrepancies were resolved. Home Medications aspirin 81 mg tablet 81 mg PO BID 03/16/23 escitalopram oxalate 10 mg tablet 10 mg PO DAILY 03/16/23 losartan 100 mg-hydrochlorothiazide 12.5 mg tablet 1 tab PO DAILY 03/16/23 acetaminophen 500 mg tablet 1,000 mg PO Q8 #0 tabs 03/20/23 doxycycline monohydrate 100 mg tablet 100 mg PO BID #28 tabs 03/20/23 famotidine 20 mg tablet 20 mg PO DAILY #30 tabs 03/20/23 meloxicam 7.5 mg tablet 7.5 mg PO BIDCM #60 tabs 03/20/23 The patient was counseled on the following discharge medications and changes in medications for homegoing were reviewed. The Reason for Use, instructions for use, and potential side effects were reviewed for all new medications. The patient's questions regarding all of their medications were answered. The patient was able to verbally demonstrate an understanding of their discharge medications.
== END 2023-03-20 12:00 | disposition home or self-care (01) | DRG 468 ==
PROVIDERS: Anesthesiology; Specialist; Admitting Provider Internal Medicine; Visit Provider Internal Medicine
PROC: 0SP90JZ Removal of Synthetic Substitute from Right Hip Joint, Open Approach (ICD-10-PCS; CPT 27134; principal; 2023-03-19 12:35)
DX: T84.020A Dislocation of internal right hip prosthesis, initial encounter (principal); I10 Essential (primary) hypertension; I48.91 Unspecified atrial fibrillation; M25.351 Other instability, right hip; X58.XXXA Exposure to other specified factors, initial encounter; Z96.641 Presence of right artificial hip joint; Z79.82 Long term (current) use of aspirin; Z79.899 Other long term (current) drug therapy; Z87.891 Personal history of nicotine dependence
CPT/HCPCS: 36415; 73502; 80048; 83735; 85027; 86850; 86900; 86901; 88305; 88311; 93005; 94668; 97162; 97166; 99252; C1776; J7040; J7120; A4216; G0463; J2405